=== PATIENT | male | born 1955 | race Caucasian/White ===

== ENCOUNTER 2018-09-25 22:50 | Emergency (ER) | payer BC ==
[2018-09-25 23:15] VITALS: BP 172/68
--- NOTE | 2018-09-25 23:46 | RADIOLOGY REPORT (SQ) ---
EXAM DESCRIPTION: XR FOOT 3 OR MORE VIEWS COMPLETED DATE/TME: 09/25/2018 00:00 CLINICAL HISTORY: 63 years, Male, plywood dropped on foot COMPARISON: None. NUMBER OF VIEWS: Three views were obtained. TECHNIQUE: Frontal, oblique, and lateral radiographs of the right foot were obtained. LIMITATIONS: None. FINDINGS: Focal lucency traverses the mid aspects of the second and third distal phalangeal bases. This is only visualized on the frontal projection. No significant displacement is noted. Mild degenerative changes are noted about the second through third DIP joints. Os peroneum is noted. There is also an os navicular. Moderate posterior and plantar calcaneal spurs are evident. No additional osseous anomalies are appreciated. IMPRESSION: Suspect nondisplaced fracture involving the second and third distal phalanges. copyright 2010 [email or web address]- All Rights Reserved
--- NOTE | 2018-09-26 01:15 | ER Document Report ---
HPI - HPI Time Seen by Provider: 09/26/18 00:52 Pain Level: 4 Notes: Patient is a 63-year-old male who presents to the emergency department for right foot pain. Patient states that yesterday around 10 AM he was at [employer] when he was loading plywood into his truck. Patient reports dropping a piece of plywood onto his right foot. Patient states at that time he was wearing tennis shoes. Patient states he continued on about his day until taking his shoes off around 5 PM and noticing significant bruising and swelling. At that time patient decided to get evaluated for possible fracture. Patient is a diabetic which he takes metformin and glipizide for. Patient also is on warfarin due to mechanical valve in his heart. Recent denies laceration or cut to his foot. Patient states he has been able to ambulate but it does cause severe pain. Past Medical History - General Information source: Patient - Social History Smoking Status: Unknown if Ever Smoked Frequency of alcohol use: None Drug Abuse: None Lives with: Family Family History: None - Past Medical History Cardiac Medical History: Reports: Hx Hypertension Denies: Hx Coronary Artery Disease, Hx Heart Attack Pulmonary Medical History: Reports: None Denies: Hx Asthma, Hx Bronchitis, Hx COPD, Hx Pneumonia EENT Medical History: Reports: None Neurological Medical History: Denies: Hx Cerebrovascular Accident, Hx Seizures Endocrine Medical History: Reports: Hx Diabetes Mellitus Type 2 Renal/ Medical History: Reports: None Malignancy Medical History: Reports None GI Medical History: Reports: None Musculoskeletal Medical History: Reports Hx Arthritis Skin Medical History: Reports None Psychiatric Medical History: Reports: None Traumatic Medical History: Reports: None Infectious Medical History: Reports: None Past Surgical History: Reports: Other - Cardiac bypass with mechanical heart valve - Immunizations Hx Diphtheria, Pertussis, Tetanus Vaccination: No Vertical Provider Document - CONSTITUTIONAL Agree With Documented VS: Yes Exam Limitations: No Limitations General Appearance: Mild Distress - INFECTION CONTROL TRAVEL OUTSIDE OF THE [place] IN LAST 30 DAYS: No - HEENT HEENT: Atraumatic, Normocephalic - NECK Neck: Normal Inspection - RESPIRATORY Respiratory: Breath Sounds Normal, No Respiratory Distress - CARDIOVASCULAR Cardiovascular: Regular Rate - Click heard with auscultation, patient does have artifical heart valve. Pulses: Normal: Dorsalis pedis - right. - GI/ABDOMEN Gastrointestinal: Abdomen Soft, Abdomen Non-Tender - MUSCULOSKELETAL/EXTREMETIES Notes: + swelling and ecchymosis to 2nd and 3rd phalange on right foot, + strong palpable dorsalis pedis pulse, <2 sec cap refill. Patient is able to wiggle his toes. No laceration or abrasion. No active bleeding. - NEURO Level of Consciousness: Awake, Alert, Appropriate - DERM Integumentary: Warm, Dry Course - Re-evaluation Re-evalutation: 09/26/18 Patient does have non-displaced fractures of the distal phalanx of the right foot. There is swelling and ecchymosis to the toes. Will mariia tape in place patient in a walking boot. Informed patient to elevate the right foot to help with swelling over the next few days and to limit excessive ambulation. Patient verbalized understanding. Patient given strict return precautions if swelling i ncreases significantly as well as bruising that extends into his foot and lower leg due to his blood thinner warfarin. - Vital Signs Vital signs: Temp Pulse Resp BP Pulse Ox 98 F 64 16 172/68 H 97 09/25/18 23:11 09/25/18 23:11 09/25/18 23:11 09/25/18 23:11 09/25/18 23:11 - Diagnostic Test Radiology reviewed: Image reviewed, Reports reviewed Radiology results interpreted by me: 09/26/18 X-ray shows a suspected non-displaced fracture involving the second and third distal phalanges. Discharge - Discharge Clinical Impression: Fracture of distal phalanx of toe of right foot Condition: Stable Disposition: HOME, SELF-CARE Additional Instructions: You were seen in the emergency department for right foot pain. You do have a non-displaced fracture in the distal portion of your second and third toe. The treatment for this is an immobilization. We have mariia taped your toes together and will place you into a walking shoe. Please elevate your right foot over the next few days to help with swelling. Due to her history of diabetes please monitor your foot carefully and multiple times per day. If you notice any open cuts or wounds please seek medical attention. You are also on warfarin, which is a blood thinner, you may have some bruising and swelling. If the swelling and bruising starts to extend up your leg passed to your foot please seek medical attention. Please follow-up with your primary care physician Alon Harris for follow-up. You are being prescribed [place] for pain, this is a narcotic, do not drive or operate any heavy machinery while on this medicine. Please return to the emergency department if you have severe pain that is not controlled with the [place], severe swelling, numbness, or signs of infection to include redness streaking up the foot, new developing wound, or any other concerning signs or symptoms. Fracture You have a fracture. The typical broken bone requires only protection and sufficient time for healing. "Setting" is necessary only if the bones are crooked or out of position. The physician will re-assess you periodically to ma ke certain that the bone heals without complications. It's important that you follow the instructions given you. The initial treatment is immobilization, elevation of the injury, and cold packs. Not all fractures require a cast. Depending on the location and type of fracture, immobilization may consist of a splint, cast, sling, bulky dressing, or simply rest. The length of time required for healing depends on the location and type of fracture, and on the age of the patient. The treatment plan the physician has outlined for you is customized to your fracture and health condition. Call the doctor or return at once if pain becomes severe, or if severe swelling or numbness develop. Prescriptions: Hydrocodone/Acetaminophen [[place] 5-325 Tablet] 1 each PO Q6 PRN #10 tablet PRN Reason: Referrals: ALON HARRIS PA-C [Primary Care Provider] - Follow up as needed
[2018-09-26] MEDS ORDERED: HYDROCODONE/ACETAMINOPHEN 5-325 MG (6 TAB/ER DISP) PO PRN (01:25)
== END 2018-09-26 01:38 | disposition home or self-care (01) ==
LOC: ER 22:50
DX: S92.534A Nondisplaced fracture of distal phalanx of right lesser toe(s), initial encounter for closed fracture (principal); W20.8XXA Other cause of strike by thrown, projected or falling object, initial encounter; I10 Essential (primary) hypertension; E11.9 Type 2 diabetes mellitus without complications
CPT/HCPCS: 99283

== ENCOUNTER 2019-09-13 04:22 | Emergency (ER) | payer BC ==
[2019-09-13] MEDS ORDERED: KETOROLAC TROMETHAMINE INJ/PF 30 MG/1 ML SDV IM ONE (06:20)
[2019-09-13] MEDS ORDERED: ACETAMINOPHEN 325 MG TABLET PO ONE (06:20)
[2019-09-13] MEDS ORDERED: LIDOCAINE 5% (700 MG) TRANSDERMAL ADH..PATCH TP ONE (06:20)
--- NOTE | 2019-09-13 06:27 | ER Document Report ---
HPI - HPI Patient complains to provider of: back pain Time Seen by Provider: 09/13/19 06:11 Pain Level: 5 Context: 64-year-old male with [id number] diabetes mellitus and history of heart surgery with a mechanical valve on warfarin presents to the emergency department with acute nontraumatic low back pain. Patient states that he was driving in his vehicle Monday and got out of it and felt something twist. Since then he has had significant pain at the level of L3-L4 on the right side. Patient states that he has been unable to sleep as a result of the pain. Patient is able to ambulate. Patient denies urinary retention or bowel incontinence. Patient is not an IV drug user. Patient does not have cancer. Patient denies saddle anesthesia. No fevers. Patient has had back pain in the past but this is new location for him. No other complaints - CONSTITUTIONAL Constitutional: DENIES: Fever, Chills Past Medical History - Social History Smoking Status: Current Every Day Smoker Family History: None Patient has suicidal ideation: No Patient has homicidal ideation: No - Past Medical History Cardiac Medical History: Reports: Hx Hypertension Denies: Hx Coronary Artery Disease, Hx Heart Attack Pulmonary Medical History: Denies: Hx Asthma, Hx Bronchitis, Hx COPD, Hx Pneumonia Neurological Medical History: Denies: Hx Cerebrovascular Accident, Hx Seizures Endocrine Medical History: Reports: Hx Diabetes Mellitus Type 2 Renal/ Medical History: Denies: Hx Peritoneal Dialysis Musculoskeletal Medical History: Reports Hx Arthritis Past Surgical History: Reports: Other - Cardiac bypass with mechanical heart valve - Immunizations Hx Diphtheria, Pertussis, Tetanus Vaccination: No Vertical Provider Document - CONSTITUTIONAL Notes: PHYSICAL EXAMINATION: Reviewed vital signs and charting by RN GENERAL: Alert, interacts well. No acute distress. HEAD: Normocephalic, atraumatic. EYES: Pupils equal and round. Extraocular movements intact. ENT: Oral mucosa moist, tongue midline. NECK: Full range of motion. Trachea midline. LUNGS: Clear to auscultation bilaterally, no wheezes, rales, or rhonchi. No respiratory distress. HEART: Regular rate and rhythm. No murmur ABDOMEN: soft, non-tender. No distention. Bowel sounds present EXTREMITIES: Moves all 4 extremities spontaneously. No edema, No cyanosis. NEURO: Intact sensation lower leg, including nl sensation to light touch inner thigh, distal legs, foot, 5/5 strength adduction thigh, flex/extension knee, foot dorsiflexion/extension, toe extension/curling toes. 2+ patellar reflexes selina PSYCH: Normal affect, normal mood. SKIN: Warm, dry, normal turgor. No rashes or lesions noted. - INFECTION CONTROL TRAVEL OUTSIDE OF THE [place] IN LAST 30 DAYS: No Course - Re-evaluation Re-evalutation: 09/13/19 06:25 Patient presents with nontraumatic low back pain. No red flags. Pain is paraspinous as he has no midline spinal tenderness. No acute weakness. Most likely represents spinal nerve root impingement. No radiculopathy. I have no concern for spinal epidural abscess, epidural hematoma, or any spinal emergency. Plan is to treat conservatively with a Lidoderm patch, Toradol 30 mg IM once, Tylenol, hot compresses, and gentle stretching. Patient is stable for discharge. - Vital Signs Vital signs: Temp Pulse Resp BP Pulse Ox 97.7 F 69 24 H 164/72 H 99 09/13/19 04:32 09/13/19 04:28 09/13/19 04:28 09/13/19 04:28 09/13/19 04:28 Discharge - Discharge Clinical Impression: Low back pain Qualifiers: Chronicity: acute Back pain laterality: right Sciatica presence: without sciatica Qualified Code(s): M54.5 - Low back pain Condition: Good Disposition: HOME, SELF-CARE Additional Instructions: You have been seen in the Emergency Department (ED) today for back pain. Your workup and exam have not shown any acute abnormalities and you are likely suffering from muscle strain or possible problems with your discs, but there is no treatment that will fix your symptoms at this time. Please take Motrin 600 mg every 6 hours and/or Tylenol every 6 hours for pain/inflammation. You should also purchase a local lidocaine cream such as "aspercreme with lidocaine" and use per bottle instructions to the affected area. Apply heat to the area as often as you are able. Continue to keep active and avoid prolonged periods of bed rest. Please follow up with your doctor as soon as possible regarding today's ED visit and your back pain. Return to the ED for worsening back pain, fever, weakness or numbness of either leg, or if you develop either (1) an inability to urinate or have bowel movements, or (2) loss of your ability to control your bathroom functions (if you start having "accidents"), or if you develop other new symptoms that concern you.concern you. Referrals: ALON HARRIS PA-C [Primary Care Provider] - Follow up as needed
[2019-09-13 06:47] VITALS: BP 158/65
== END 2019-09-13 06:57 | disposition home or self-care (01) ==
LOC: ER 04:22
DX: M54.5 Low back pain (principal); M54.9 Dorsalgia, unspecified; X50.1XXA Overexertion from prolonged static or awkward postures, initial encounter; F17.200 Nicotine dependence, unspecified, uncomplicated; I10 Essential (primary) hypertension; E11.9 Type 2 diabetes mellitus without complications; Z95.2 Presence of prosthetic heart valve; Z79.01 Long term (current) use of anticoagulants
CPT/HCPCS: 99283; 96372; J1885